=== PATIENT | female | born 1950 | race Caucasian/White ===

== ENCOUNTER → 2020-08-28 | Outpatient (CLI) | payer MEDICARE, BC ==
[~2020-08-28] MED LIST: ATOR20TA37 PO; BUPR150T73 PO; CHOL10003 PO; FLUO40CA9 PO; ZOLP5TAB6 PO
[2020-08-28 16:20] LABS: MICROSCOPIC AUTO
[2020-08-28 16:22] LABS: BASOPHILS % (AUTO) 1 % (0-1); EOSINOPHILS % (AUTO) 6 % (1-7); INTERNATIONAL NORMALIZED RATIO 0.99 (0.93-1.1); LYMPHOCYTES % (AUTO) 30 % (22-44); MEAN CORPUSCULAR HEMOGLOBIN 35.4 pg (27.0-34.8); MEAN CORPUSCULAR HGB CONC 34.3 g/dL (32.4-35.8); MONOCYTES % (AUTO) 8 % (2-9); NEUTROPHILS % (AUTO) 55 % (42-75); PLATELET COUNT 281 x10^3/uL (130-400); PROTHROMBIN TIME 10.5 Seconds (9.6-11.5); RED BLOOD COUNT 3.48 x10^6/uL (3.82-5.3); RED CELL DISTRIBUTION WIDTH 12.6 % (9.6-15.2)
[2020-08-28 16:23] LABS: CALCIUM 8.9 mg/dL (8.5-10.1)
[2020-08-28 16:26] LABS: MD NO
[2020-08-28 16:31] LABS: CHLORIDE 107 mmol/L (98-107)
[2020-08-28 16:33] LABS: ANION GAP 7 mmol/L (5-15)
== END | disposition home or self-care (01) ==
LOC: STAR 15:02
PROVIDERS: ATTEND Neurological Surgery
DX: Z01.818 Encounter for other preprocedural examination (principal); M43.16 Spondylolisthesis, lumbar region; M41.84 Other forms of scoliosis, thoracic region; Z20.828 Contact with and (suspected) exposure to other viral communicable diseases
CPT/HCPCS: 71046; 72110; 80048; 81001; 85025; 85610; 85730; 87086; 87635; 93005